=== PATIENT | male | born 1955 | race Caucasian/White ===

== ENCOUNTER 2020-11-24 06:28 | Emergency (ER) | payer MEDICARE, OTHER ==
[~2020-11-24] VITALS: Ht 165.1 cm; Wt 121.5 kg
[2020-11-24 06:40] VITALS: BP 130/77
--- NOTE | 2020-11-24 06:46 | ED Upper Extremity ---
General Chief Complaint: Upper Extremity Stated Complaint: LEFT SHOULDER INJURY Source: patient History of Present Illness Date Seen by Provider: November 24, 2020 Time Seen by Provider: 06:33 Initial Comments 65 yo male presents with pain to top of left shoulder. He had tripped last night, 11/23, and tried to catch himself with his left arm. He reports feeling ok at the time but then woke up around 1 am with pain. He has had prior problems with the shoulder due to arthritis and thinks Dr. Hankins has done a steroid shot to help in the past, but was not sure if it was his shoulder or knee. He denies hitting his head or losing consciousness. He took Arthrtitis Tylenol at 3 am and it helped him rest until 5 am when he woke up with pain again. He can move the arm and shoulder but has pain to top of the shoulder. Slight red abrasion to top of shoulder. No bruising. No numbness or weakness. Onset: yesterday Severity: moderate Pain/Injury Location: left shoulder Method of Injury: fell (tripped) Modifying Factors: Improves With Pain Medication (helps some) Allergies and Home Medications Allergies Coded Allergies: Penicillins (Verified Allergy, Unknown, 11/24/20) Patient Home Medication List Home Medication List Reviewed: Yes Review of Systems Constitutional: no symptoms reported EENTM: no symptoms reported Respiratory: no symptoms reported Cardiovascular: no symptoms reported Gastrointestinal: no symptoms reported Genitourinary: no symptoms reported Musculoskeletal: see HPI, joint pain (chronic arthritic joint pain in multiple joints) Skin: see HPI Psychiatric/Neurological: Denies Numbness, Denies Paresthesia, Denies Weakness Past Gpogyss-Jxqaeh-Zfdiub Hx Past Med/Social Hx: Reviewed Nursing Past Med/Soc Hx Past Medical History Surgeries: Yes Abdominal (hernia) Respiratory: No Cardiac: Yes Hypertension Neurological: No Genitourinary: No Gastrointestinal: No Musculoskeletal: Yes Arthritis Endocrine: No HEENT: No Psychosocial: No Physical Exam Vital Signs Vital Signs - First Documented 11/24/20 06:40 Temp 36.8 Pulse 96 Resp 18 B/P (MAP) 130/77 (94) Pulse Ox 97 O2 Delivery Room Air Capillary Refill : Height, Weight, BMI Height: '" Weight: lbs. oz. kg; BMI Method: General Appearance: WD/WN, no apparent distress HEENT: PERRL/EOMI, pharynx normal Neck: non-tender, full range of motion, supple Cardiovascular: normal peripheral pulses, regular rate, rhythm Respiratory: chest non-tender, lungs clear, normal breath sounds, no respiratory distress, no accessory muscle use Shoulder: normal ROM, bone tenderness (mild tenderness to palpation on superior aspect of left shoulder AC joint area. 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 Progress Note #2: Progress Note Discussed with patient that there are no obvious fractures or dislocation. The rotator cuff does not show up on the x-ray so that may still be an issue. We will try treating with anti-inflammatory such as a steroid. Patient wanted to use pills instead of shots. He refused narcotics due to family history of overdose and complications with narcotic abuse. He states due to that he avoids the narcotics if at all possible. Counseled on follow-up and return precautions. Will use a sling for 2 to 3 days. Diagnostic Imaging Diagonstic Imaging: Xray Plain Films/CT/US/NM/MRI: other (left shoulder) Comments NAME: PARKER MOSER MED REC#: [id number] PT STATUS: REG ER : 1955 PHYSICIAN: CHELI BLUM MD ADMIT DATE: 11/24/20/ER FS Draft Date of Exam:11/24/20 SHOULDER 2 VIEW LEFT INDICATION: Tripped yesterday. Shoulder pain. EXAMINATION: Left shoulder 11/24/2020 FINDINGS: Two views of the shoulder There is narrowing and spurring at the acromioclavicular joint and at the greater tuberosity. Findings consistent with rotator cuff tendinopathy. Hyperdensity superimposed upon the humerus could represent loose bodies in the overlying biceps tendon sheath versus bone islands. No fractures or dislocations appreciated. Visualized lung clear. IMPRESSION: 1. Diffuse chronic findings. Dictated on workstation # [id number] Dict: 11/24/20 0650 Trans: 11/24/20 0656 [facility] [id number] Interpreted by: JACQUI ACOSTA MD Electronically signed by: Reviewed: Reviewed by Me Departure Impression Primary Impression: Pain of left shoulder region Additional Impression: Fall Qualified Codes: W19.XXXA - Unspecified fall, initial encounter Disposition: HOME, SELF-CARE Condition: Stable Departure-Patient Inst. Decision time for Depature: 07:04 Referrals: FLOYD HANKINS DO (PCP/Family) Primary Care Physician Patient Instructions: Shoulder Pain ED, How to Use a Shoulder Sling Add. Discharge Instructions: Use the sling for next 2-3 days to help your arm and shoulder rest. Make sure to take the shoulder and arm out after that so you do not have the joint freeze up. If you are not seeing it improve over the next few days or if worsening check with Dr. Hankins and he may need you to get an MRI to look at Rotator Cuff and soft tissues or see Orthopedics. All discharge instructions reviewed with patient and/or family. Voiced understanding. Scripts Prednisone (Prednisone) 20 Mg Tab 40 MG PO DAILY for shoulder pain for 5 Days, #10 TAB 0 Refills Prov: CHELI BLUM MD 11/24/20 CHELI BLUM MD November 24, 2020 06:46
--- NOTE | 2020-11-24 06:56 | Diagnostic Imaging Report ---
INDICATION: Tripped yesterday. Shoulder pain. EXAMINATION: Left shoulder 11/24/2020 FINDINGS: Two views of the shoulder There is narrowing and spurring at the acromioclavicular joint and at the greater tuberosity. Findings consistent with rotator cuff tendinopathy. Hyperdensity superimposed upon the humerus could represent loose bodies in the overlying biceps tendon sheath versus bone islands. No fractures or dislocations appreciated. Visualized lung clear. IMPRESSION: 1. Diffuse chronic findings. Dictated by: Dictated on workstation # [id number]
[2020-11-24] MEDS ORDERED: predniSONE 20 MG TAB PO STA (07:03)
[2020-11-24] MEDS ORDERED: PRD20T PO (07:08)
== END 2020-11-24 07:14 | disposition home or self-care (01) ==
LOC: ER FS 06:32
DX: M25.512 Pain in left shoulder (principal); I10 Essential (primary) hypertension; W01.0XXA Fall on same level from slipping, tripping and stumbling without subsequent striking against object, initial encounter
CPT/HCPCS: 73030; 99283; A4565